=== PATIENT | female | born 1965 | race American Indian/Alaskan Native ===

== ENCOUNTER 2016-12-21 07:34 | Outpatient (CLI) | payer MEDICARE ==
--- NOTE | 2016-12-21 11:10 | Nuclear Medicine Report ---
NUCLEAR MEDICINE GASTRIC EMPTYING SCAN History: Gastroparesis, early satiety, nausea and vomiting Findings: Anterior abdominal images were obtained for 90 minutes following 1 mCi of technetium 99m sulfur colloid in oatmeal. There is very little gastric emptying over this period. A small hiatal hernia or reflux in the distal esophagus is also suspected. Impression: Severe gastroparesis.
== END 2016-12-21 07:35 | disposition home or self-care (01) ==
LOC: NM 07:34
PROVIDERS: ATTEND Internal Medicine Gastroenterology
DX: K31.84 Gastroparesis (principal); K44.9 Diaphragmatic hernia without obstruction or gangrene
CPT/HCPCS: 78264; A9541